=== PATIENT | female | born 1950 | race Caucasian/White ===

== ENCOUNTER 2016-11-14 10:58 | Day surgery (SDC) | payer MEDICARE, OTHER ==
[2016-11-14] MEDS ORDERED: LACTATED RINGERS 1,000 ML IV ONE ×2 (12:27→14:30)
[2016-11-14] MEDS ORDERED: fentaNYL 250 MCG/5 ML VIAL IVP ONE (14:16)
[2016-11-14] MEDS ORDERED: MIDAZOLAM 2 MG/2 ML VIAL IVP ONE (14:16)
== END 2016-11-14 10:59 | disposition home or self-care (01) ==
PROC: 0DBP8ZX Excision of Rectum, Via Natural or Artificial Opening Endoscopic, Diagnostic (ICD-10-PCS; principal; 2016-11-14 12:30)
DX: Z12.11 Encounter for screening for malignant neoplasm of colon (principal); K62.1 Rectal polyp; Z80.0 Family history of malignant neoplasm of digestive organs; K57.30 Diverticulosis of large intestine without perforation or abscess without bleeding; K64.8 Other hemorrhoids; Z86.010 Personal history of colon polyps; Z87.891 Personal history of nicotine dependence; Z80.51 Family history of malignant neoplasm of kidney; E78.5 Hyperlipidemia, unspecified
CPT/HCPCS: 45380; J3010; J7120

== ENCOUNTER 2018-01-21 15:31 | Outpatient (CLI) | payer MEDICARE ==
--- NOTE | 2018-01-31 13:55 | Mammography Report ---
Procedure Date: 01/21/2018 Accession Number: [id number] / [id number] Procedure: MGS - Screening Mammo Dig Bilat CPT Code: FULL RESULT: EXAM: Screening Mammo Dig Bilat DATE: 01/21/2018 3:53 PM CLINICAL HISTORY: ROUTINE MAMMOGRAM TECHNIQUE: Bilateral CC and MLO views were obtained. COMPARISON: The patient reports having had previous mammograms in [place], but films are not yet available for direct comparison. If they become available, an addendum will be issued. FINDINGS: The breasts demonstrate scattered fibroglandular densities bilaterally. A calcifying fibroadenoma is present in the right upper outer quadrant. Coarse and punctate, typically benign calcifications are present. No suspicious masses, clustered microcalcifications, or regions of architectural distortion are identified. IMPRESSION: Benign findings RECOMMENDATION: Routine annual screening unless otherwise clinically indicated. BIRADS CATEGORY 2: Benign findings STANDARD QUALIFYING STATEMENTS: 1. This examination was reviewed with the aid of Computer-Aided Detection (CAD). 2. A negative or benign imaging report should not delay biopsy if clinically suspicious findings are present. Consider surgical consultation if warrented. More than 5% of cancers are not identified by imaging. 3. Dense breasts may obscure an underlying neoplasm.
== END 2018-01-21 15:32 | disposition home or self-care (01) ==
LOC: DI.S 15:31
PROVIDERS: ATTEND Family Medicine
DX: Z12.31 Encounter for screening mammogram for malignant neoplasm of breast (principal)
CPT/HCPCS: 77067

== ENCOUNTER 2018-02-05 15:55 | Outpatient (CLI) | payer MEDICARE ==
--- NOTE | 2018-02-05 16:26 | XRAY Report ---
Procedure Date: 02/05/2018 Accession Number: [id number] / [id number] Procedure: XRS - Cervical Spine Complete CPT Code: FULL RESULT: EXAM: Cervical Spine Complete DATE: 02/05/2018 4:12 PM CLINICAL HISTORY: CERVICALGIA COMPARISON: None. TECHNIQUE: 5 views. FINDINGS: Alignment: Normal. No spondylolisthesis or scoliosis. Bones: The cervical vertebral bodies and posterior elements are well seen from the skull base through C7-T1. No fractures or bone lesions. Disks: Disk heights are maintained. Facets: No degenerative disease. Soft Tissues: No prevertebral soft tissue swelling. IMPRESSION: Normal cervical spine radiography. [facility]
== END 2018-02-05 15:56 | disposition home or self-care (01) ==
LOC: DI.S 15:55
PROVIDERS: ATTEND Family Medicine
DX: M54.2 Cervicalgia (principal)
CPT/HCPCS: 72050

== ENCOUNTER 2019-05-30 13:36 | Outpatient (CLI) | payer MEDICARE ==
--- NOTE | 2019-06-02 09:28 | Mammography Report ---
Reason: SCREENING MAMMO Procedure Date: 05/30/2019 Accession Number: [id number] / [id number] Procedure: MARLEEN - Screening Mammo w/Félix CPT Code: FULL RESULT: EXAM: Screening Mammo w/Félix DATE: 05/30/2019 2:06 PM CLINICAL HISTORY: Screening encounter. History of early menses. TECHNIQUE: (B) - Bilateral CC and MLO views were obtained. A left laterally exaggerated views obtained. COMPARISON: 01/21/2018. PARENCHYMAL PATTERN: (A) - The breast(s) demonstrate(s) scattered fibroglandular densities. FINDINGS: There is a partially calcified right breast nodule which is stable and consistent with a calcifying fibroadenoma. There are no suspicious masses, calcifications, or areas of distortion. IMPRESSION: Benign findings. BI-RADS category 2. RECOMMENDATION: (ANNUAL) - Recommend routine annual screening mammography. BI-RADS CATEGORY: (2) - Benign Findings. STANDARD QUALIFYING STATEMENTS: 1. This examination was not reviewed with the aid of Computer-Aided Detection (CAD). 2. A negative or benign imaging report should not preclude biopsy if clinically suspicious findings are present. 3. Dense breasts may obscure an underlying neoplasm. 4. This examination was reviewed with the aid of 3D breast imaging (tomosynthesis).
== END 2019-05-30 13:37 | disposition home or self-care (01) ==
LOC: DI 13:36
PROVIDERS: ATTEND Family Medicine
DX: Z12.31 Encounter for screening mammogram for malignant neoplasm of breast (principal)
CPT/HCPCS: 77063; 77067

== ENCOUNTER 2019-05-30 13:38 | Outpatient (CLI) | payer MEDICARE ==
--- NOTE | 2019-06-02 12:16 | DEXA Report ---
Reason: MENOPAUSAL AND POSTMENOPAUSAL DISORDERS Procedure Date: 05/30/2019 Accession Number: [id number] / [id number] Procedure: DEX - Dexa Spine and/or Hip CPT Code: FULL RESULT: EXAM: Dexa Spine and/or Hip DATE: 05/30/2019 2:20 PM CLINICAL HISTORY: MENOPAUSAL AND POSTMENOPAUSAL DISORDERS TECHNIQUE: Dual energy x-ray absorptiometry (DXA) was performed on a [employer] System. Regions measured are the AP Spine, femoral neck, and if needed forearm. COMPARISON: None. In accordance with the International Society for Clinical Densitometry (ISCD) guidelines, data from previous exams may be reanalyzed using current recommendations and techniques. This is done to allow a more accurate basis for comparison with the current study. FINDINGS: The data for the lumbar spine is as follows: BMD (g/cm/cm) T-SCORE Z-SCORE REGION L1 0.888 -2.0 -0.3 L2 1.032 -1.4 0.3 L3 1.118 -0.7 1.0 L4 1.033 -1.4 0.3 TOTAL 1.023 -1.3 0.4 NOTE: All evaluable vertebrae are used for classification The data for the hip is as follows: BMD (g/cm/cm) T-SCORE Z-SCORE REGION Neck 0.798 -1.7 0.0 TOTAL 0.792 -1.7 -0.2 NOTE: The femoral neck or total proximal femur, whichever is lowest, is used for classification. IMPRESSION: THE WHO CLASSIFICATION BASED ON THE INTERNATIONAL REFERENCE STANDARD IS OSTEOPENIA. THE FRACTURE RISK IS INCREASED. RECOMMENDATION: Patients with diagnosis of osteoporosis or osteopenia should have regular bone mineral density assessment. For those eligible for Medicare, routine testing is allowed once every 2 years. Testing frequency can be increased for patients who have rapidly progressing disease or for those who are receiving medical therapy to restore bone mass. COMMENT: World Health Organization (WHO) definitions for osteoporosis and osteopenia: NORMAL BMD: T-score at -1.0 or higher, fracture risk is low OSTEOPENIA BMD: T-score between -1.0 and -2.5, fracture risk is increased. OSTEOPOROSIS BMD: T-score at -2.5 or lower, fracture risk is high. National Osteoporosis Foundation recommends: 1. Obtain adequate dietary calcium (at least 1200 mg per day) and vitamin D (400-800 international units per day). 2. Participate, as appropriate, in regular weightbearing and muscle-strengthening exercise. 3. Avoid tobacco use and reduce alcohol and caffeine intake. 4. For more detailed information see the website at www.NOF.org.
== END 2019-05-30 13:39 | disposition home or self-care (01) ==
LOC: DI 13:38
PROVIDERS: ATTEND Family Medicine
DX: M85.89 Other specified disorders of bone density and structure, multiple sites (principal); N95.9 Unspecified menopausal and perimenopausal disorder
CPT/HCPCS: 77080

== ENCOUNTER 2020-08-16 16:33 | Outpatient (CLI) | payer MEDICARE ==
--- NOTE | 2020-08-17 11:00 | XRAY Report ---
PROCEDURE: Hand 3 View RT INDICATIONS: PAIN IN RIGHT HAND TECHNIQUE: 3 views of the hand(s) acquired. COMPARISON: None. FINDINGS: Bones: There is a fracture at the base of the fifth proximal phalanx with mild impaction, relation an d possible intra-articular involvement. No suspicious bony lesions. Mild osteopenia. Soft tissues: No suspicious soft tissue calcifications. IMPRESSION: Fifth proximal phalangeal base fracture with possible intra-articular involvement. Reviewed by: Sravanthi Perez MD on 08/17/2020 10:58 AM [facility] Approved by: Sravanthi Perez MD on 08/17/2020 10:58 AM [facility] Station ID: [id number]
== END 2020-08-16 16:34 | disposition home or self-care (01) ==
LOC: DI.S 16:33
PROVIDERS: ATTEND Nurse Practitioner Family
DX: S62.616A Displaced fracture of proximal phalanx of right little finger, initial encounter for closed fracture (principal)

== ENCOUNTER 2021-10-27 13:58 | Emergency (ER) | payer MEDICARE ==
[2021-10-27] MEDS ORDERED: SODIUM CHLORIDE 0.9% 1,000 ML IV STA (14:24)
[2021-10-27] MEDS ORDERED: ONDANSETRON 4 MG/2 ML VIAL IVP STA (14:24)
[2021-10-27 14:51] LABS: BASOPHILS % (AUTO) 0.2 %; EOSINOPHILS % (AUTO) 0.2 %; HCT - HEMATOCRIT 35.5 % (37.0-47.0); HGB - HEMOGLOBIN 12.3 g/dL (12.0-16.0); LYMPHOCYTES % (AUTO) 12.8 %; MEAN CORPUSCULAR HEMOGLOBIN 30.5 pg (27.0-31.0); MEAN CORPUSCULAR HGB CONC 34.6 g/dL (32.0-36.0); MEAN CORPUSCULAR VOLUME 88.1 fL (81.0-99.0); MEAN PLATELET VOLUME 10.5 fL (7.9-10.8); MONOCYTES % (AUTO) 10.7 %; PLT - PLATELET COUNT 218 10^3/uL (130-450); RED BLOOD COUNT 4.03 10^6/uL (4.20-5.40); RED CELL DISTRIBUTION WIDTH 13.2 % (12.0-15.0); WHITE BLOOD COUNT 13.3 x10^3/uL (4.8-10.8)
[2021-10-27 14:55] LABS: ABNORMAL LYMPHS % (MANUAL) 0 %; SLIDE REVIEW? Indicated
[2021-10-27 14:58] LABS: ALBUMIN 2.7 g/dL (3.2-5.5); ALBUMIN/GLOBULIN RATIO 0.7 (1.0-2.2); BILIRUBIN,TOTAL 0.5 mg/dL (0.2-1.0); CALCIUM 8.2 mg/dL (8.5-10.3); CREATININE 0.8 mg/dL (0.4-1.0); POTASSIUM 3.7 mmol/L (3.5-5.0); TOTAL PROTEIN 6.5 g/dL (6.7-8.2)
[2021-10-27 15:36] LABS: BAND NEUTROPHILS % (MANUAL) 1 %; BASOPHILS # (MANUAL) 0.1 10^3/uL (0-0.1); BASOPHILS % (MANUAL) 1 %; DIFFERENTIAL COMMENT MANUAL DIFFERENTIAL; LYMPHOCYTES # (MANUAL) 1.6 10^3/uL (1.5-3.5); LYMPHOCYTES % (MANUAL) 12 %; NEUTROPHILS # (MANUAL) 9.6 10^3/uL (1.5-6.6); PLATELET ESTIMATE, MANUAL NORMAL (130-450,000) (NORMAL); PLATELET MORPHOLOGY NORMAL APPEARANCE (NORMAL); RBC MORPHOLOGY (MULTIPLE) NORMAL APPEARANCE (NORMAL); WBC MORPHOLOGY (MULTIPLE) 1+ TOXIC GRANULATION (NORMAL)
--- NOTE | 2021-10-27 15:59 | ED Physician Documentation ---
History of Present Illness - Stated complaint Stated Complaint: SOA/DIZZY/BACK PX - Chief complaint Chief Complaint: General - History obtained from History obtained from: Patient - Additonal information Additional information: The patient comes to the emergency department with chief complaint of fatigue and diarrhea. She states that symptoms have been going on for about the last 6 days. She states she started does feel very tired and then developed watery diarrhea. This lasted until about a couple days ago when she took Imodium. She has not had a bowel movement since. She states her appetite was low but she was able to keep bananas and rice down. She is also been drinking fluids. The patient states she has had headache and had some chills last night. No measured fevers. No chest pain or abdominal pain. No dysuria. No edema in her lower extremities. No cough, rhinorrhea, or sore throat. She is vaccinated for Covid and has had 2 - Covid tests since onset of symptoms. No other complaints at this time. She states she does not see people very often and has had no sick contacts that she knows of. She is otherwise quite healthy. Review of Systems Ten Systems: 10 systems reviewed and negative Constitutional: reports: Fatigue Eyes: reports: Reviewed and negative Ears: reports: Reviewed and negative Nose: reports: Reviewed and negative. denies: Rhinorrhea / runny nose, Congestion Throat: reports: Reviewed and negative Cardiac: reports: Reviewed and negative. denies: Chest pain / pressure, Pedal edema Respiratory: reports: Dyspnea. denies: Cough GI: reports: Diarrhea. denies: Abdominal Pain, Nausea : reports: Reviewed and negative. 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 HEENT: Tonsil/Adenoidectomy - Present Medications Home Medications: Ambulatory Orders Medication Instructions Recorded Confirmed Atorvastatin [Lipitor] 10 mg PO DAILY 11/14/16 11/14/16 - Allergies Allergies/Adverse Reactions: Allergies Allergy/AdvReac Type Severity Reaction Status Date / Time erythromycin base Allergy Intermediate Hives Verified 11/14/16 11:53 simvastatin Allergy Unknown Verified 10/27/21 14:07 PD ED PE NORMAL - Vitals Vital signs reviewed: Yes - General General: Alert and oriented X 3, No acute distress, Well developed/nourished - HEENT HEENT: Atraumatic, PERRL, EOMI, Moist mucous membranes - Neck Neck: Supple, no meningeal sign - Cardiac Cardiac: RRR, No murmur, Strong equal pulses - Respiratory Respiratory: No respiratory distress, Clear bilaterally - Abdomen Abdomen: Soft, Non tender, Non distended - Derm Derm: Normal color, Warm and dry, No rash - Extremities Extremities: No deformity, No edema, No calf tenderness / cord - Neuro Neuro: Alert and oriented X 3, field investigator 2-12 intact, Normal speech - Psych Psych: Normal mood, Normal affect Results - Vitals Vitals: Vital Signs - 24 hr 10/27/21 10/27/21 10/27/21 14:03 14:57 16:10 Temperature 36.5 C Heart Rate 97 83 73 Respiratory 18 12 13 Rate Blood Pressure 120/50 L 109/37 L 94/53 L O2 Saturation 100 98 100 Oxygen O2 Source Room air - EKG (time done) 1402 Rate: Rate (enter#) (99) Rhythm: NSR [place]: Normal Intervals: Normal OR QRS: Normal Ischemia: Normal ST segments Compare to prior EKG: Old EKG unavailable Computer interpretation: Agree with computer - Labs Labs: Laboratory Tests 10/27/21 10/27/21 10/27/21 14:40 14:40 15:34 WBC 13.3 H RBC 4.03 L Hgb 12.3 Hct 35.5 L MCV 88.1 MCH 30.5 MCHC 34.6 RDW 13.2 Plt Count 218 MPV 10.5 Neut # (Auto) Not Reportable Lymph # (Auto) Not Reportable [place] # (Auto) Not Reportable Eos # (Auto) Not Reportable Baso # (Auto) Not Reportable Absolute Nucleated RBC Not Reportable Total Counted 100 Band Neuts % (Manual) 1 Abnorm Lymph % (Manual) 0 Nucleated RBC % Not Reportable Neutrophils # (Manual) 9.6 H Lymphocytes # (Manual) 1.6 Monocytes # (Manual) 2.0 H Eosinophils # (Manual) 0.0 Basophils # (Manual) 0.1 Differential Comment MANUAL DIFFERENTIAL Manual Slide Review Indicated WBC Morphology 1+ TOXIC GRANULATION Platelet Estimate NORMAL (130-450,000) Platelet Morphology NORMAL APPEARANCE RBC Morph Micro Appear NORMAL APPEARANCE Sodium 130 L Potassium 3.7 Chloride 95 L Carbon Dioxide 25 Anion Gap 10.0 BUN 22 H Creatinine 0.8 Estimated GFR (MDRD) 70 L Glucose 110 H Calcium 8.2 L Total Bilirubin 0.5 AST 39 ALT 163 H Alkaline Phosphatase 176 H Total Protein 6.5 L Albumin 2.7 L Globulin 3.8 Albumin/Globulin Ratio 0.7 L Lipase 30 Urine Color YELLOW Urine Clarity CLEAR Urine pH 6.0 Ur Specific [place] <=1.005 Urine Protein NEGATIVE Urine Glucose (UA) NEGATIVE Urine Ketones NEGATIVE Urine Occult Blood TRACE-INTA Urine Nitrite NEGATIVE Urine Bilirubin NEGATIVE Urine Urobilinogen 0.2 (NORMAL) Ur Leukocyte Esterase NEGATIVE Ur Microscopic Review NOT INDICATED Urine Culture Comments NOT INDICATED Nasal Adenovirus (PCR) Nasal B. parapertussis DNA (PCR) Nasal Coronavir 229E PCR Nasal Coronavir HKU1 PCR Nasal Coronavir NL63 PCR Nasal Coronavir OC43 PCR Nasal Enterovir/Rhinovir PCR Nasal Influenza B PCR Nasal Influenza A PCR Nasal Parainfluen 1 PCR Nasal Parainfluen 2 PCR Nasal Parainfluen 3 PCR Nasal Parainfluen 4 PCR Nasal RSV (PCR) Nasal B.pertussis DNA PCR Nasal C.pneumoniae (PCR) Win Human Metapneumo PCR Nasal M.pneumoniae (PCR) Nasal SARS-CoV-2 (PCR) 10/27/21 16:11 WBC RBC Hgb Hct MCV MCH MCHC RDW Plt Count MPV Neut # (Auto) Lymph # (Auto) [place] # (Auto) Eos # (Auto) Baso # (Auto) Absolute Nucleated RBC Total Counted Band Neuts % (Manual) Abnorm Lymph % (Manual) Nucleated RBC % Neutrophils # (Manual) Lymphocytes # (Manual) Monocytes # (Manual) Eosinophils # (Manual) Basophils # (Manual) Differential Comment Manual Slide Review WBC Morphology Platelet Estimate Platelet Morphology RBC Morph Micro Appear Sodium Potassium Chloride Carbon Dioxide Anion Gap BUN Creatinine Estimated GFR (MDRD) Glucose Calcium Total Bilirubin AST ALT Alkaline Phosphatase Total Protein Albumin Globulin Albumin/Globulin Ratio Lipase Urine Color Urine Clarity Urine pH Ur Specific [place] Urine Protein Urine Glucose (UA) Urine Ketones Urine Occult Blood Urine Nitrite Urine Bilirubin Urine Urobilinogen Ur Leukocyte Esterase Ur Microscopic Review Urine Culture Comments Nasal Adenovirus (PCR) NOT DETECTED Nasal B. parapertussis DNA (PCR) NOT DETECTED Nasal Coronavir 229E PCR NOT DETECTED Nasal Coronavir HKU1 PCR NOT DETECTED Nasal Coronavir NL63 PCR NOT DETECTED Nasal Coronavir OC43 PCR NOT DETECTED Nasal Enterovir/Rhinovir PCR NOT DETECTED Nasal Influenza B PCR NOT DETECTED Nasal Influenza A PCR NOT DETECTED Nasal Parainfluen 1 PCR NOT DETECTED Nasal Parainfluen 2 PCR NOT DETECTED Nasal Parainfluen 3 PCR NOT DETECTED Nasal Parainfluen 4 PCR NOT DETECTED Nasal RSV (PCR) NOT DETECTED Nasal B.pertussis DNA PCR NOT DETECTED Nasal C.pneumoniae (PCR) NOT DETECTED Win Human Metapneumo PCR NOT DETECTED Nasal M.pneumoniae (PCR) NOT DETECTED Nasal SARS-CoV-2 (PCR) NOT DETECTED - Rads (name of study) Right upper quadrant ultrasound Radiology: Final report received, EMP read indepedently, See rad report (Heterogenous mass in superior aspect of right hepatic lobe approximately 4 x 5 x 7 cm. Remaining liver normal. No gallbladder pathology.) CT abdomen pelvis with IV contrast Radiology: Final report received, EMP read indepedently, See rad report (Heterogenous multicystic appearing lesion in right lobe of liver malignant and benign etiologies in the differential diagnosis. Only [address] chest with IV contrast Radiology: Final report received, EMP read indepedently, See rad report (Upper lobe as above; no other chest lesions noted) PD MEDICAL DECISION MAKING - ED course Complexity details: reviewed results, re-evaluated patient, considered differential, d/w patient ED course: The patient was worked up with labs, which showed elevated LFTs. Urinalysis and respiratory PCR were also ordered, as was a sonogram of the right upper quadrant, due to the elevated LFTs. The patient was treated with a liter of 0.9 normal saline. Ultrasound showed a large liver mass, which prompted a CT scan of the chest abdomen and pelvis. No further masses were found, and radiologist commented that the masses appearance could indicate either a benign or malignant process. I discussed the findings with the patient. Her labs otherwise had showed a mildly low sodium which had been addressed with the liter of normal saline. The patient has a primary care physician, Dr. Gracia, who is very responsive if patient needs to be seen, and patient states she will call her office first thing tomorrow to schedule follow-up to discuss a biopsy of the lesion. As far as her sense of general malaise and fatigue, it is possible that this is due to what ever the process is that is causing the mass in her liver, but it is also very possible that she has a viral syndrome. Her viral panel is pending at this time. We have discussed the need for hydration and nutrition at home. The patient has had something to eat and drink here and is feeling a little better. She is ambulated to the bathroom without difficulty. We have discussed the usual indications for return. Departure - Departure Disposition: 01 Home, Self Care Clinical Impression: Liver mass, Viral syndrome Condition: Stable Instructions: ED Viral Syndrome Comments: Your labs showed a mildly decreased sodium, which has been treated with saline containing IV fluids today. Your labs also showed elevation of some of your liver enzymes, which prompted an ultrasound, then a CT scan. You are found to have a fairly large size mass on the top of your liver, which is most likely the reason for the sense of mass that you have had along your ribs and with tamika thing. At this point in time, the radiologist has commented that it is not clear whether this is malignant/cancerous or benign/noncancerous, as the appearance could be consistent with a number of both types of masses. At this point in time, the most important aspect of follow-up is to speak with your doctor about getting urgently set up for a biopsy. Please call your doctors office first thing in the morning to set up the next available appointment to follow-up your ER visit. Please be sure to tell them that you are in the ER not feeling well and that you were diagnosed with a tumor on your liver. Your tests otherwise look good. Your viral panel is still pending and Will be back within the next couple of hours. We will call you for any significant positive results, but you also may follow the results yourself if you wish via our website at [email or web address]. From there, please click on the "my [employer] tab and sign up for the patient portal. Please continue to drink plenty of fluids. You may eat food as you feel able.
[2021-10-27 16:06] LABS: BILIRUBIN,URINE NEGATIVE (NEGATIVE); GLUCOSE, URINE (UA) NEGATIVE (NEGATIVE); KETONES,URINE (UA) NEGATIVE (NEGATIVE); LEUKOCYTE ESTERASE, URINE NEGATIVE (NEGATIVE); NITRITE,URINE NEGATIVE (NEGATIVE); OCCULT BLOOD,URINE TRACE-INTA (NEGATIVE); PROTEIN,URINE NEGATIVE (NEGATIVE); UROBILINOGEN,URINE 0.2 (NORMAL) E.U./dL (NORMAL)
[2021-10-27 16:07] LABS: CLARITY,URINE CLEAR (CLEAR)
[2021-10-27] MEDS ORDERED: IOVERSOL 320 100 ML VIAL IVP ONE ×2 (16:27→16:33)
--- NOTE | 2021-10-27 16:37 | Ultrasound Report ---
PROCEDURE: Abdomen Limited INDICATIONS: elevated LFTs, feeling unwell TECHNIQUE: Real-time focused scanning was performed of the abdomen, with image documentation. COMPARISON: None. FINDINGS: Heterogeneous mass in the superior aspect of the right hepatic lobe measuring approximatel y 4.3 x 5.5 x 7.2 cm. Remaining liver is normal. No intrahepatic or extra hepatic biliary ductal dila tation. Pancreas is normal. Right kidney unremarkable. IMPRESSION: Heterogeneous right hepatic lobe mass with both malignant and benign differential considerations. [facility] protocol CT or MRI recommended. Reviewed by: Zack Cassidy MD on 10/27/2021 4:36 PM PST Approved by: Zack Cassidy MD on 10/27/2021 4:36 PM PST Station ID: [id number]
--- NOTE | 2021-10-27 16:53 | CT Report ---
PROCEDURE: CHEST W INDICATIONS: Liver mass, dyspnea CONTRAST: IV CONTRAST: Optiray 320 ml: 100 PO CONTRAST: *NO PO CONTRAST TECHNIQUE: After the administration of intravenous contrast, 1 mm axial images were acquired from the pulmonary apices through the posterior costophrenic angles. Axial 5 mm soft tissue kernel reconstructions were performed as well as 8 mm axial MIP and coronal and sagittal 5 mm reformations. For radiation dose reduction, the following was used: automated exposure control, adjustment of mA and/or kV according to patient size. COMPARISON: None. FINDINGS: Image quality: Excellent. Lungs and pleura: No suspicious lung nodule or mass. No acute airspace opacity otherwise. No signific ant pleural abnormality. Mediastinum: Heart size is normal. No pericardial effusion. No mediastinal or hilar adenopathy by size criteria. Thoracic aorta and central pulmonary arteries are normal in size. Esophagus is janine l in caliber. No hiatal hernia. Bones and chest wall: No suspicious bony lesions. No vertebral body compression fractures. No axil sabine or supraclavicular adenopathy by size criteria. The thyroid is normal in size and there are no incidental findings.. IMPRESSION: No acute or otherwise significant abnormality in the chest. There is a right hepatic lobe mass; please see separately dictated report for CT of the abdomen and p jeremy. Reviewed by: Zack Cassidy MD on 10/27/2021 4:51 PM PST Approved by: Zack Cassidy MD on 10/27/2021 4:51 PM PST Station ID: [id number]
--- NOTE | 2021-10-27 17:02 | CT Report ---
PROCEDURE: Abdomen/Pelvis W INDICATIONS: liver mass, fatigue CONTRAST: IV CONTRAST: Optiray 320 ml: 100 PO CONTRAST: *NO PO CONTRAST TECHNIQUE: After the administration of intravenous contrast, 5 mm thick sections acquired from the diaphragms to the symphysis. 5 mm thick coronal and sagittal reformats were acquired. For radiation dose reducti on, the following was used: automated exposure control, adjustment of mA and/or kV according to gagandeep ent size. COMPARISON: Abdominal ultrasound earlier today. FINDINGS: Image quality: Excellent. ABDOMEN: Lung bases: Please see separately dictated same day CT chest. No pleural effusion. Solid organs: Heterogeneous multicystic lesion in the right lobe of liver subcapsular measuring 5.5 x 4.2 cm, (11/09). No internal calcifications are seen. There is surrounding hyperemia. Liver is promin ent in size. Gallbladder is prominent. Biliary system is non dilated. Pancreas enhances normally. No splenomegal y. No adrenal nodules demonstrated. Kidneys demonstrate normal size and enhancement, without hydrone phrosis. No solid renal mass. Peritoneum and bowel: Bowel loops demonstrate normal wall thickness and caliber. Diverticulosis. No free fluid or air. Nodes and vessels: No retroperitoneal or mesenteric adenopathy by size criteria. Aorta and inferior vena cava are normal in size. Moderate plaque. Miscellaneous: Tiny umbilical hernia. PELVIS: Genitourinary: Bladder wall thickness is normal. No stones. Anteverted uterus. No free fluid. Miscellaneous: No inguinal hernias or adenopathy. Bones: No suspicious bony lesions. No vertebral body compression fractures. IMPRESSION: 1. Heterogeneous multicystic appearing lesion in the right lobe of the liver measuring 5.5 cm. Malign ant and benign etiologies are in the differential diagnosis. This does not have the typical appearanc e of a hepatocellular carcinoma or hemangioma. Only one lesion is identified but this does not exclud e metastatic disease. Mucinous neoplasm could have this appearance. Abscess or hamartoma would also b e considered in the differential diagnosis. Recommend ultrasound-guided biopsy for tissue diagnosis. MRI liver with multiphase contrast could als o be helpful. 2. No adenopathy demonstrated. 3. Prominent liver size. Reviewed by: Tu Almaraz MD on 10/27/2021 5:01 PM PST Approved by: Tu Almaraz MD on 10/27/2021 5:01 PM PST Station ID: [id number]
[2021-10-27 17:19] LABS: B. PARAPERTUSSIS- RESP PCR PAN NOT DETECTED; B. PERTUSSIS- RESP PCR PANEL NOT DETECTED; C. PNEUMONIAE- RESP PCR PANEL NOT DETECTED; CORONAVIRUS 229E-RESP PCR NOT DETECTED; CORONAVIRUS HKU1-RESP PCR NOT DETECTED; CORONAVIRUS NL63-RESP PCR NOT DETECTED; CORONAVIRUS OC43-RESP PCR NOT DETECTED; HUMAN METAPNEUMOVIRUS NOT DETECTED; INFLUENZA A- RESP PCR PANEL NOT DETECTED; INFLUENZA B - RESP PCR PANEL NOT DETECTED; M. PNEUMONIAE- RESP PCR PANEL NOT DETECTED; PARAINFLUENZA VIRUS 1 NOT DETECTED; PARAINFLUENZA VIRUS 2 NOT DETECTED; PARAINFLUENZA VIRUS 3 NOT DETECTED; PARAINFLUENZA VIRUS 4 NOT DETECTED; RHINOVIRUS/ENTEROVIRUS NOT DETECTED; RSV- RESP PCR PANEL NOT DETECTED; SARS-CoV-2 -RESP PCR PANEL NOT DETECTED
[2021-10-27 18:14] VITALS: BP 108/54
== END 2021-10-27 18:10 | disposition home or self-care (01) ==
LOC: ED 13:58
DX: B34.9 Viral infection, unspecified (principal); R16.0 Hepatomegaly, not elsewhere classified; R79.89 Other specified abnormal findings of blood chemistry
CPT/HCPCS: 36415; 71260; 74177; 76705; 80053; 81003; 83690; 85025; 87631; 93005; 96361; 96374; 99284; Q9967; 0202U; 81001; 87086

== ENCOUNTER 2021-10-30 11:47 | Emergency (ER) | payer MEDICARE ==
[2021-10-30 12:25] LABS: BASOPHILS # (AUTO) 0.1 10^3/uL (0.0-0.1); BASOPHILS % (AUTO) 0.5 %; EOSINOPHILS % (AUTO) 0.2 %; HCT - HEMATOCRIT 33.7 % (37.0-47.0); HGB - HEMOGLOBIN 11.5 g/dL (12.0-16.0); LYMPHOCYTES # (AUTO) 2.5 10^3/uL (1.5-3.5); LYMPHOCYTES % (AUTO) 13.5 %; MEAN CORPUSCULAR HEMOGLOBIN 30.7 pg (27.0-31.0); MEAN CORPUSCULAR HGB CONC 34.1 g/dL (32.0-36.0); MEAN CORPUSCULAR VOLUME 89.9 fL (81.0-99.0); MEAN PLATELET VOLUME 9.9 fL (7.9-10.8); MONOCYTES # (AUTO) 1.1 10^3/uL (0.0-1.0); NEUTROPHILS # (AUTO) 14.7 10^3/uL (1.5-6.6); NEUTROPHILS % (AUTO) 78.9 %; PLT - PLATELET COUNT 378 10^3/uL (130-450); RED BLOOD COUNT 3.75 10^6/uL (4.20-5.40); RED CELL DISTRIBUTION WIDTH 14.1 % (12.0-15.0); WHITE BLOOD COUNT 18.6 x10^3/uL (4.8-10.8)
[2021-10-30 12:31] LABS: INR 1.3 (0.8-1.2); PT - PROTHROMBIN TIME 14.9 secs (9.9-12.6)
[2021-10-30 12:38] LABS: PARTIAL THROMBOPLASTIN TIME 26.4 secs (24.9-33.3)
[2021-10-30 12:39] LABS: ALBUMIN 2.6 g/dL (3.2-5.5); ALBUMIN/GLOBULIN RATIO 0.6 (1.0-2.2); BILIRUBIN,TOTAL 0.6 mg/dL (0.2-1.0); CALCIUM 8.2 mg/dL (8.5-10.3); CREATININE 0.6 mg/dL (0.4-1.0); POTASSIUM 3.1 mmol/L (3.5-5.0); TOTAL PROTEIN 6.8 g/dL (6.7-8.2)
[2021-10-30 14:17] LABS: BILIRUBIN,URINE NEGATIVE (NEGATIVE); GLUCOSE, URINE (UA) NEGATIVE (NEGATIVE); KETONES,URINE (UA) NEGATIVE (NEGATIVE); LEUKOCYTE ESTERASE, URINE NEGATIVE (NEGATIVE); NITRITE,URINE NEGATIVE (NEGATIVE); OCCULT BLOOD,URINE TRACE-INTA (NEGATIVE); PROTEIN,URINE NEGATIVE (NEGATIVE); UROBILINOGEN,URINE 0.2 (NORMAL) E.U./dL (NORMAL)
[2021-10-30 14:21] LABS: CLARITY,URINE CLEAR (CLEAR)
[2021-10-30] MEDS ORDERED: SODIUM CHLORIDE 0.9% 2,000 ML IV STA (14:21)
--- NOTE | 2021-10-30 14:25 | ED Physician Documentation ---
History of Present Illness - Stated complaint Stated Complaint: FALL/WEAKNESS/DIARRHEA - Chief complaint Chief Complaint: General - History obtained from History obtained from: Patient - History of Present Illness Timing: Last night Pain level max: 0 Pain level now: 0 - Additonal information Additional information: Patient is a 71-year-old female who presents to the emergency department stating she is currently being worked up for a mass in her liver. Has had frequent diarrhea as well. She states last night she is unsure what happened, but thinks she either passed out or fell. She states she woke up on the floor. Denies any injury. No headaches. Patient has an appointment in 2 days for further work-up of the liver mass. She denies any fevers or chills. Feels lightheaded with standing. No chest pain. No shortness of breath. Worse with standing, better with lying down. She feels like her blood pressure is low. She denies any medications at home. Review of Systems Constitutional: denies: Fever, Chills Throat: denies: Sore throat Cardiac: denies: Palpitations Respiratory: denies: Cough, Wheezing Skin: denies: Rash Musculoskeletal: denies: Neck pain, Back pain Neurologic: reports: Generalized weakness. 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 HEENT: Tonsil/Adenoidectomy - Present Medications Home Medications: Ambulatory Orders Medication Instructions Recorded Confirmed Atorvastatin [Lipitor] 10 mg PO DAILY 11/14/16 11/14/16 - Allergies Allergies/Adverse Reactions: Allergies Allergy/AdvReac Type Severity Reaction Status Date / Time erythromycin base Allergy Intermediate Hives Verified 10/30/21 12:01 simvastatin Allergy Unknown Verified 10/30/21 12:01 PD ED PE NORMAL - Vitals Vital signs reviewed: Yes - General General: Alert and oriented X 3, No acute distress, Well developed/nourished - HEENT HEENT: PERRL, Moist mucous membranes - Neck Neck: Supple, no meningeal sign - Cardiac Cardiac: RRR, Strong equal pulses - Respiratory Respiratory: No respiratory distress, Clear bilaterally - Abdomen Abdomen: Soft, Non tender, Non distended - Derm Derm: Warm and dry - Extremities Extremities: No edema, No calf tenderness / cord - Neuro Neuro: Alert and oriented X 3 - Psych Psych: Normal mood, Normal affect Results - Vitals Vitals: Vital Signs - 24 hr 10/30/21 10/30/21 10/30/21 11:58 14:57 16:00 Temperature 35.9 C L 36.5 C Heart Rate 108 H 83 56 L Respiratory 16 12 16 Rate Blood Pressure 105/50 L 125/60 121/63 O2 Saturation 96 100 96 Oxygen O2 Source Room air - EKG (time done) 1521 Rate: Rate (enter#) (78) Rhythm: NSR [place]: Normal Intervals: Normal [place] QRS: Normal Ischemia: Non specific changes - Labs Labs: Laboratory Tests 10/30/21 10/30/21 10/30/21 12:20 12:20 12:20 WBC 18.6 H RBC 3.75 L Hgb 11.5 L Hct 33.7 L MCV 89.9 MCH 30.7 MCHC 34.1 RDW 14.1 Plt Count 378 MPV 9.9 Neut # (Auto) 14.7 H Lymph # (Auto) 2.5 Chase # (Auto) 1.1 H Eos # (Auto) 0.0 Baso # (Auto) 0.1 Absolute Nucleated RBC 0.00 Nucleated RBC % 0.0 PT 14.9 H INR 1.3 H APTT 26.4 Sodium 134 L Potassium 3.1 L Chloride 96 L Carbon Dioxide 26 Anion Gap 12.0 BUN 15 Creatinine 0.6 Estimated GFR (MDRD) 98 Glucose 106 H Calcium 8.2 L Total Bilirubin 0.6 AST 67 H ALT 89 H Alkaline Phosphatase 215 H Total Protein 6.8 Albumin 2.6 L Globulin 4.2 Albumin/Globulin Ratio 0.6 L Lipase 35 Urine Color Urine Clarity Urine pH Ur Specific [place] Urine Protein Urine Glucose (UA) Urine Ketones Urine Occult Blood Urine Nitrite Urine Bilirubin Urine Urobilinogen Ur Leukocyte Esterase Ur Microscopic Review Urine Culture Comments 10/30/21 14:10 WBC RBC Hgb Hct MCV MCH MCHC RDW Plt Count MPV Neut # (Auto) Lymph # (Auto) Chase # (Auto) Eos # (Auto) Baso # (Auto) Absolute Nucleated RBC Nucleated RBC % PT INR APTT Sodium Potassium Chloride Carbon Dioxide Anion Gap BUN Creatinine Estimated GFR (MDRD) Glucose Calcium Total Bilirubin AST ALT Alkaline Phosphatase Total Protein Albumin Globulin Albumin/Globulin Ratio Lipase Urine Color YELLOW Urine Clarity CLEAR Urine pH 6.0 Ur Specific [place] <=1.005 Urine Protein NEGATIVE Urine Glucose (UA) NEGATIVE Urine Ketones NEGATIVE Urine Occult Blood TRACE-INTA Urine Nitrite NEGATIVE Urine Bilirubin NEGATIVE Urine Urobilinogen 0.2 (NORMAL) Ur Leukocyte Esterase NEGATIVE Ur Microscopic Review NOT INDICATED Urine Culture Comments NOT INDICATED - Rads (name of study) HEAD CT Radiology: Final report received, EMP read contemporaneously, See rad report (No acute intracranial abnormality) PD MEDICAL DECISION MAKING - ED course Complexity details: reviewed results, re-evaluated patient, considered differential, d/w patient ED course: 71-year-old female presents with what appears to be height dehydration, causing hypotension and lightheadedness. Feels much better after IV fluids. She has been worked up for a liver mass and has an appointment in 2 days for this. She does have an elevated white blood cell count, but states that she has not had any fevers. She states her white blood cell count has been elevated in the past. No evidence of sepsis. No indication for antibiotics. We will have her follow-up closely with her PCP for further care. Patient counseled regarding signs and symptoms for which I believe and urgent re-evaluation would be necessary. Patient with good understanding of and agreement to plan and is comfortable going home at this time This document was made in part using voice recognition software. While efforts are made to proofread this document, sound alike and grammatical errors may occur. Departure - Departure Disposition: Home, Self Care Clinical Impression: Liver mass, Dehydration Leukocytosis Qualifiers: Leukocytosis type: unspecified Qualified Code(s): D72.829 - Elevated white blood cell count, unspecified Diarrhea Qualifiers: Diarrhea type: unspecified type Qualified Code(s): R19.7 - Diarrhea, unspecified Condition: Good Instructions: ED Dehydration, ED Diarrhea Viral Follow-Up: Your,doctor in 1 week [Other] Comments: Please follow-up with your doctor for further care. Return if you worsen. You should have your white blood cell count rechecked in 2 to 3 days with your doctor. Drink plenty of water at home. Follow-up as scheduled on Sunday for further evaluation of your liver mass. Return if you worsen Discharge Date/Time: 10/30/21 16:48
--- NOTE | 2021-10-30 15:05 | CT Report ---
PROCEDURE: HEAD WO INDICATIONS: fall, head injury TECHNIQUE: Noncontrast 4.5 mm thick angled axial sections acquired from the foramen magnum to the vertex. For r adiation dose reduction, the following was used: automated exposure control, adjustment of mA and/or kV according to patient size. COMPARISON: None. FINDINGS: Image quality: Excellent. CSF spaces: Basal cisterns are patent. No extra-axial fluid collections. Ventricles are normal in size and shape. Brain: No midline shift. No intracranial masses or hemorrhage. Rodriguez-white matter interface is with in normal limits. Skull and face: Calvarium and visualized facial bones are intact, without suspicious lesions. Sinuses: Visualized sinuses and mastoids are clear. IMPRESSION: No acute intracranial abnormality. Reviewed by: Tu Almaraz MD on 10/30/2021 2:03 PM MICHAEL Approved by: Tu Almaraz MD on 10/30/2021 2:03 PM MICHAEL Station ID: [id number]
[2021-10-30 16:16] VITALS: BP 121/63
== END 2021-10-30 16:48 | disposition home or self-care (01) ==
LOC: ED 11:47
DX: E86.0 Dehydration (principal); D72.829 Elevated white blood cell count, unspecified; R19.7 Diarrhea, unspecified; R16.0 Hepatomegaly, not elsewhere classified
CPT/HCPCS: 36415; 80053; 81001; 81003; 83690; 85025; 85610; 85730; 87086; 93005; 96360; 96361; 99284

== ENCOUNTER 2021-10-31 18:04 | Outpatient (CLI) | payer MEDICARE | END 2021-10-31 18:05 | disposition critical access hospital (66) | LOC: EMS 18:04 | DX: R53.1 Weakness (principal); R10.11 Right upper quadrant pain; R53.83 Other fatigue; R06.89 Other abnormalities of breathing; R68.83 Chills (without fever) | CPT/HCPCS: A0425; A0427 ==

== ENCOUNTER 2021-10-31 18:35 | Emergency (ER) | payer MEDICARE ==
[2021-10-31] MEDS ORDERED: HYDROmorphone 1 MG/ML CARPUJECT IVP STA ×2 (19:15→21:40)
[2021-10-31 19:38] LABS: BASOPHILS % (AUTO) 0.5 %; HCT - HEMATOCRIT 30.4 % (37.0-47.0); HGB - HEMOGLOBIN 10.5 g/dL (12.0-16.0); LYMPHOCYTES % (AUTO) 2.5 %; MEAN CORPUSCULAR HEMOGLOBIN 31.3 pg (27.0-31.0); MEAN CORPUSCULAR HGB CONC 34.5 g/dL (32.0-36.0); MEAN CORPUSCULAR VOLUME 90.5 fL (81.0-99.0); MEAN PLATELET VOLUME 9.9 fL (7.9-10.8); MONOCYTES % (AUTO) 0.7 %; NEUTROPHILS % (AUTO) 95.4 %; PLT - PLATELET COUNT 391 10^3/uL (130-450); RED BLOOD COUNT 3.36 10^6/uL (4.20-5.40); RED CELL DISTRIBUTION WIDTH 14.4 % (12.0-15.0); WHITE BLOOD COUNT 20.6 x10^3/uL (4.8-10.8)
[2021-10-31 19:42] LABS: ABNORMAL LYMPHS % (MANUAL) 0 %
[2021-10-31 19:52] LABS: ALBUMIN 2.5 g/dL (3.2-5.5); ALBUMIN/GLOBULIN RATIO 0.7 (1.0-2.2); BILIRUBIN,TOTAL 0.9 mg/dL (0.2-1.0); CALCIUM 7.9 mg/dL (8.5-10.3); CREATININE 0.7 mg/dL (0.4-1.0); POTASSIUM 3.2 mmol/L (3.5-5.0); TOTAL PROTEIN 6.1 g/dL (6.7-8.2)
[2021-10-31 19:55] LABS: BILIRUBIN,URINE NEGATIVE (NEGATIVE); GLUCOSE, URINE (UA) NEGATIVE (NEGATIVE); KETONES,URINE (UA) NEGATIVE (NEGATIVE); LEUKOCYTE ESTERASE, URINE NEGATIVE (NEGATIVE); NITRITE,URINE NEGATIVE (NEGATIVE); OCCULT BLOOD,URINE NEGATIVE (NEGATIVE); PROTEIN,URINE NEGATIVE (NEGATIVE); UROBILINOGEN,URINE 0.2 (NORMAL) E.U./dL (NORMAL)
[2021-10-31 19:56] LABS: CLARITY,URINE CLEAR (CLEAR)
[2021-10-31 19:59] LABS: BAND NEUTROPHILS % (MANUAL) 3 %; LYMPHOCYTES # (MANUAL) 0.4 10^3/uL (1.5-3.5); LYMPHOCYTES % (MANUAL) 2 %; MONOCYTES # (MANUAL) 0.2 10^3/uL (0.0-1.0)
[2021-10-31 20:00] LABS: DIFFERENTIAL COMMENT MANUAL DIFFERENTIAL; PLATELET ESTIMATE, MANUAL NORMAL (130-450,000) (NORMAL); PLATELET MORPHOLOGY NORMAL APPEARANCE (NORMAL); RBC MORPHOLOGY (MULTIPLE) NORMAL APPEARANCE (NORMAL); WBC MORPHOLOGY (MULTIPLE) 2+ TOXIC GRANULATION (NORMAL)
[2021-10-31] MEDS ORDERED: IOVERSOL 320 100 ML VIAL IVP ONE ×2 (20:39→21:05)
--- NOTE | 2021-10-31 20:49 | ED Physician Documentation ---
History of Present Illness - Stated complaint Stated Complaint: WEAKNESS, FEELING SICK - Chief complaint Chief Complaint: Fever - History obtained from History obtained from: Patient - History of Present Illness Timing: Today Pain level max: 8 Pain level now: 7 - Additonal information Additional information: Patient is a 71-year-old female who was seen here recently and diagnosed with a liver mass. Has an appointment with hepatology in 2 days at a [facility] for further care. She states that today she has been feeling generally unwell, for the first time had right upper quadrant abdominal pain. Nothing makes it better or worse. Developed a fever today as well. Feels generally weak. Review of Systems Ten Systems: 10 systems reviewed and negative Constitutional: reports: Fever, Chills Ears: denies: Ear pain Nose: denies: Rhinorrhea / runny nose, Congestion Throat: denies: Sore throat Respiratory: denies: Dyspnea, Cough GI: denies: Abdominal Pain, Nausea, Vomiting, Diarrhea : denies: Dysuria Skin: denies: Rash Musculoskeletal: denies: Neck pain, Back pain Neurologic: denies: Headache PD PAST MEDICAL HISTORY - Past Medical History Cardiovascular: High cholesterol Respiratory: None Endocrine/Autoimmune: None GI: None : None HEENT: None Psych: None Musculoskeletal: Osteoarthritis Derm: None - Past Surgical History General: Appendectomy 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 HEENT: Tonsil/Adenoidectomy - Present Medications Home Medications: Ambulatory Orders Medication Instructions Recorded Confirmed Atorvastatin [Lipitor] 10 mg PO DAILY 11/14/16 11/14/16 - Allergies Allergies/Adverse Reactions: Allergies Allergy/AdvReac Type Severity Reaction Status Date / Time erythromycin base Allergy Intermediate Hives Verified 10/30/21 12:01 simvastatin Allergy Unknown Verified 10/30/21 12:01 - Social History Does the pt smoke?: No Smoking Status: Never smoker Does the pt drink ETOH?: No Does the pt have substance abuse?: No PD ED PE NORMAL - Vitals Vital signs reviewed: Yes - General General: Alert and oriented X 3, No acute distress - HEENT HEENT: Moist mucous membranes - Neck Neck: Supple, no meningeal sign - Cardiac Cardiac: RRR - Respiratory Respiratory: No respiratory distress, Clear bilaterally - Abdomen Abdomen: Soft, Non distended, Other (mild TTP RUQ, no peritoneal signs) - Derm Derm: Warm and dry - Extremities Extremities: No edema - Neuro Neuro: Alert and oriented X 3 Results - Vitals Vitals: Vital Signs - 24 hr 10/31/21 19:02 Temperature 101.2 C H Heart Rate 112 H Respiratory 18 Rate Blood Pressure 120/64 O2 Saturation 98 Oxygen O2 Source Room air - Labs Labs: Laboratory Tests 10/31/21 10/31/21 10/31/21 19:23 19:30 19:30 WBC 20.6 H RBC 3.36 L Hgb 10.5 L Hct 30.4 L MCV 90.5 MCH 31.3 H MCHC 34.5 RDW 14.4 Plt Count 391 MPV 9.9 Neut # (Auto) Not Reportable Lymph # (Auto) Not Reportable Curry # (Auto) Not Reportable Eos # (Auto) Not Reportable Baso # (Auto) Not Reportable Absolute Nucleated RBC Not Reportable Total Counted 100 Band Neuts % (Manual) 3 Abnorm Lymph % (Manual) 0 Nucleated RBC % Not Reportable Neutrophils # (Manual) 20.0 H Lymphocytes # (Manual) 0.4 L Monocytes # (Manual) 0.2 Eosinophils # (Manual) 0.0 Basophils # (Manual) 0.0 Differential Comment MANUAL DIFFERENTIAL WBC Morphology 2+ TOXIC GRANULATION Platelet Estimate NORMAL (130-450,000) Platelet Morphology NORMAL APPEARANCE RBC Morph Micro Appear NORMAL APPEARANCE Sodium 138 Potassium 3.2 L Chloride 103 Carbon Dioxide 24 Anion Gap 11.0 BUN 9 Creatinine 0.7 Estimated GFR (MDRD) 82 L Glucose 123 H Lactic Acid 1.9 Calcium 7.9 L Total Bilirubin 0.9 AST 47 H ALT 63 H Alkaline Phosphatase 193 H Total Protein 6.1 L Albumin 2.5 L Globulin 3.6 Albumin/Globulin Ratio 0.7 L Lipase 29 Urine Color Urine Clarity Urine pH Ur Specific [place] Urine Protein Urine Glucose (UA) Urine Ketones Urine Occult Blood Urine Nitrite Urine Bilirubin Urine Urobilinogen Ur Leukocyte Esterase Ur Microscopic Review Urine Culture Comments Nasal Adenovirus (PCR) Nasal B. parapertussis DNA (PCR) Nasal Coronavir 229E PCR Nasal Coronavir HKU1 PCR Nasal Coronavir NL63 PCR Nasal Coronavir OC43 PCR Nasal Enterovir/Rhinovir PCR Nasal Influenza B PCR Nasal Influenza A PCR Nasal Parainfluen 1 PCR Nasal Parainfluen 2 PCR Nasal Parainfluen 3 PCR Nasal Parainfluen 4 PCR Nasal RSV (PCR) Nasal B.pertussis DNA PCR Nasal C.pneumoniae (PCR) Win Human Metapneumo PCR Nasal M.pneumoniae (PCR) Nasal SARS-CoV-2 (PCR) 10/31/21 10/31/21 19:45 21:00 WBC RBC Hgb Hct MCV MCH MCHC RDW Plt Count MPV Neut # (Auto) Lymph # (Auto) [place] # (Auto) Eos # (Auto) Baso # (Auto) Absolute Nucleated RBC Total Counted Band Neuts % (Manual) Abnorm Lymph % (Manual) Nucleated RBC % Neutrophils # (Manual) Lymphocytes # (Manual) Monocytes # (Manual) Eosinophils # (Manual) Basophils # (Manual) Differential Comment WBC Morphology Platelet Estimate Platelet Morphology RBC Morph Micro Appear Sodium Potassium Chloride Carbon Dioxide Anion Gap BUN Creatinine Estimated GFR (MDRD) Glucose Lactic Acid Calcium Total Bilirubin AST ALT Alkaline Phosphatase Total Protein Albumin Globulin Albumin/Globulin Ratio Lipase Urine Color YELLOW Urine Clarity CLEAR Urine pH 6.0 Ur Specific [place] 1.010 Urine Protein NEGATIVE Urine Glucose (UA) NEGATIVE Urine Ketones NEGATIVE Urine Occult Blood NEGATIVE Urine Nitrite NEGATIVE Urine Bilirubin NEGATIVE Urine Urobilinogen 0.2 (NORMAL) Ur Leukocyte Esterase NEGATIVE Ur Microscopic Review NOT INDICATED Urine Culture Comments NOT INDICATED Nasal Adenovirus (PCR) NOT DETECTED Nasal B. parapertussis DNA (PCR) NOT DETECTED Nasal Coronavir 229E PCR NOT DETECTED Nasal Coronavir HKU1 PCR NOT DETECTED Nasal Coronavir NL63 PCR NOT DETECTED Nasal Coronavir OC43 PCR NOT DETECTED Nasal Enterovir/Rhinovir PCR NOT DETECTED Nasal Influenza B PCR NOT DETECTED Nasal Influenza A PCR NOT DETECTED Nasal Parainfluen 1 PCR NOT DETECTED Nasal Parainfluen 2 PCR NOT DETECTED Nasal Parainfluen 3 PCR NOT DETECTED Nasal Parainfluen 4 PCR NOT DETECTED Nasal RSV (PCR) NOT DETECTED Nasal B.pertussis DNA PCR NOT DETECTED Nasal C.pneumoniae (PCR) NOT DETECTED Win Human Metapneumo PCR NOT DETECTED Nasal M.pneumoniae (PCR) NOT DETECTED Nasal SARS-CoV-2 (PCR) NOT DETECTED - Rads (name of study) CT abd/pelvis Radiology: Final report received, EMP read contemporaneously, See rad report PD MEDICAL DECISION MAKING - ED course Complexity details: reviewed results, re-evaluated patient, considered differential, d/w patient ED course: Patient is a 71-year-old female who presents to the emergency department with right upper quadrant abdominal pain and fever today. She was recently diagnosed with a possible liver mass. Has had an increasing leukocytosis over the past 4 days. Her mass has been decreased in size from 5.5 cm to 8 cm. Consistent with abscess/infectious process. Antibiotics were held as she does not appear septic at this point and the receiving hospital may want to perform the biopsy prior to antibiotics for culture purposes. Discussed the case with Jim Chavez, He states that there are no beds at any [place] facilities. He states that she is cleared for admission to any hospital or we can find a bed. Attempted to contact [facility] in [place], [facility], [facility] and [facility] in [place]. All the hospitals are full. There are no beds available tonight. Attempted to discuss with our hospitalist here, but Dr. Boateng feels that this patient is too complicated for our facility. We do not have IR, hepatology or gastroenterology. To discuss with the transfer center at the [facility], they will call back. We may also contacted the [facility] to see if they can find any beds for this patient. Patient signed out to the [facility] emergency department physician. This document was made in part using voice recognition software. While efforts are made to proofread this document, sound alike and grammatical errors may occur. 1. 8.0 x 6.2 x 7.3 cm heterogeneously enhancing, multicystic lesion involving the right lobe of liver increased in size compared to 10/27/2021. Findings are most suspicious for abscess/infectious process, however aggressive neoplastic process is not completely excluded by the current study. Correlation with clinical and laboratory data, multiphase hepatic protocol CT or MRI of the abdomen and surgical consultation recommended. 2. No lymphadenopathy based on size criteria. 3. No free intraperitoneal fluid or air. 4. Colonic diverticulosis without evidence of diverticulitis. CXR: No acute disease Departure - Departure Disposition: 02 Transfer Acute Care Hosp Clinical Impression: Liver mass Fever Qualifiers: Fever type: unspecified Qualified Code(s): R50.9 - Fever, unspecified Abdominal pain Qualifiers: Abdominal location: right upper quadrant Qualified Code(s): R10.11 - Right upper quadrant pain Condition: Stable
--- NOTE | 2021-10-31 20:59 | XRAY Report ---
PROCEDURE: Chest 1 View X-Ray INDICATIONS: fever TECHNIQUE: One view of the chest was acquired. COMPARISON: CT chest 10/27/2021. FINDINGS: Surgical changes and devices: None. Lungs and pleura: No pleural effusions or pneumothorax. Interstitial prominence in the lungs bilater ally. Mediastinum: Mediastinal contours appear normal. Heart size is normal. Bones and chest wall: No suspicious bony lesions. Overlying soft tissues appear unremarkable. IMPRESSION: Bilateral lung interstitial prominence which could represent atypical pneumonia or pulmonary edema. Reviewed by: Vonda Ugarte MD, PhD on 10/31/2021 8:57 PM PDT Approved by: Vonda Ugarte MD, PhD on 10/31/2021 8:57 PM PDT Station ID: [id number]
--- NOTE | 2021-10-31 21:16 | CT Report ---
PROCEDURE: Abdomen/Pelvis W INDICATIONS: fever, liver mass CONTRAST: IV CONTRAST: Optiray 320 ml: 100 PO CONTRAST: *NO PO CONTRAST TECHNIQUE: After the administration of contrast, 5 mm thick sections acquired from the diaphragms to the sym physis. 5 mm thick coronal and sagittal reformats were acquired. For radiation dose reduction, the following was used: automated exposure control, adjustment of mA and/or kV according to patient size . COMPARISON: None. FINDINGS: Image quality: Excellent. ABDOMEN: Lung bases: Lung bases are clear. Heart size is normal. Solid organs: There is a 8.0 x 6.2 x 7.3 cm heterogeneously enhancing, multicystic lesion in the righ t lobe of the liver which is increased in size compared to 10/27/2021. No new hepatic lesions identifi ed. Spleen is normal in size and enhancement. Gallbladder is within normal limits Biliary system is non dilated. Pancreas enhances normally. No adrenal nodules. Kidneys demonstrate normal size and e nhancement, without hydronephrosis. Peritoneum and bowel: Bowel loops demonstrate normal wall thickness and caliber. Numerous diverticul i noted in the colon without evidence of diverticulitis. No free fluid or air. Nodes and vessels: No retroperitoneal or mesenteric adenopathy by size criteria. Aorta and inferior vena cava are normal in size. Scattered atherosclerotic calcifications are noted in the abdominal an d pelvic vasculature. Miscellaneous: No ventral hernias. PELVIS: Genitourinary: Bladder wall thickness is normal. Miscellaneous: No inguinal hernias or adenopathy. Bones: No suspicious bony lesions. No vertebral body compression fractures. IMPRESSION: 1. 8.0 x 6.2 x 7.3 cm heterogeneously enhancing, multicystic lesion involving the right lobe of liver increased in size compared to 10/27/2021. Findings are most suspicious for abscess/infectious process , however aggressive neoplastic process is not completely excluded by the current study. Correlation with clinical and laboratory data, multiphase hepatic protocol CT or MRI of the abdomen and surgical consultation recommended. 2. No lymphadenopathy based on size criteria. 3. No free intraperitoneal fluid or air. 4. Colonic diverticulosis without evidence of diverticulitis. Reviewed by: Vonda Ugarte MD, PhD on 10/31/2021 9:14 PM PDT Approved by: Vonda Ugarte MD, PhD on 10/31/2021 9:14 PM PDT Station ID: [id number]
[2021-10-31] MEDS ORDERED: SODIUM CHLORIDE 0.9% 1,000 ML IV STA ×2 (21:43)
[2021-10-31 22:25] LABS: B. PARAPERTUSSIS- RESP PCR PAN NOT DETECTED; B. PERTUSSIS- RESP PCR PANEL NOT DETECTED; C. PNEUMONIAE- RESP PCR PANEL NOT DETECTED; CORONAVIRUS 229E-RESP PCR NOT DETECTED; CORONAVIRUS HKU1-RESP PCR NOT DETECTED; CORONAVIRUS NL63-RESP PCR NOT DETECTED; CORONAVIRUS OC43-RESP PCR NOT DETECTED; HUMAN METAPNEUMOVIRUS NOT DETECTED; INFLUENZA A- RESP PCR PANEL NOT DETECTED; INFLUENZA B - RESP PCR PANEL NOT DETECTED; M. PNEUMONIAE- RESP PCR PANEL NOT DETECTED; PARAINFLUENZA VIRUS 1 NOT DETECTED; PARAINFLUENZA VIRUS 2 NOT DETECTED; PARAINFLUENZA VIRUS 3 NOT DETECTED; PARAINFLUENZA VIRUS 4 NOT DETECTED; RHINOVIRUS/ENTEROVIRUS NOT DETECTED; RSV- RESP PCR PANEL NOT DETECTED; SARS-CoV-2 -RESP PCR PANEL NOT DETECTED
[2021-11-01 00:02] VITALS: BP 109/59
[2021-11-01] MEDS ORDERED: cefTRIAXone 1 GM in SODIUM CHLORIDE 0.9% MINIBAG 100 ML IV STA (01:19)
--- NOTE | 2021-11-01 01:38 | ED Physician Documentation ---
ED Addendum - Addendum Addendum: 11/01/21 01:10 Patient signed out to me by Dr. Martel. Patient is awaiting transfer to a facility with IR Coverage for a liver mass suspicious for an abscess.So far we have received no call box regarding an available bed. As the patient was febrile and has an elevated white count, I will initiate antibiotic therapy as I am unsure of how long she may be waiting on transfer. 11/01/21 01:36 Discussed the case with Dr. Scott Rosas at [facility]. He agrees With the antibiotics that have been given. HeAccepts the patient for transfer for a [facility] bed. Requested a repeat set of vitals prior to transfer and per COREY Toth, patient's blood pressure had improved prior to transport. Requested a dose of pain medication given long transport time. As her blood pressure has improved I feel this is appropriate and have ordered for 0.5 mg of IV Dilaudid.
[2021-11-01] MEDS ORDERED: cefTRIAXone 1 GM VIAL ONE (01:43)
[2021-11-01] MEDS ORDERED: metroNIDAZOLE 500 MG/100 ML 500 MG/100 ML BAG IV ONE (02:00)
[2021-11-01] MEDS ORDERED: HYDROmorphone 1 MG/ML CARPUJECT IVP STA (02:18)
== END 2021-11-01 02:42 | disposition short-term general hospital (02) ==
LOC: EDUNIT# → ED 18:35
DX: K75.0 Abscess of liver (principal); R50.9 Fever, unspecified; R10.11 Right upper quadrant pain; Z20.822 Contact with and (suspected) exposure to COVID-19
CPT/HCPCS: 36415; 71045; 74177; 80053; 81003; 83605; 83690; 85025; 87040; 87077; 87150; 87181; 87631; 96361; 96365; 96375; 96376; 99284; 99285; J1170; Q9967; 0202U; 81001; 87086

== ENCOUNTER 2021-11-01 02:36 | Outpatient (CLI) | payer MEDICARE | END 2021-11-01 02:37 | disposition short-term general hospital (02) | LOC: EMS 02:36 | PROVIDERS: ATTEND Emergency Medicine | DX: K75.0 Abscess of liver (principal) | CPT/HCPCS: A0425; A0426 ==

== ENCOUNTER 2021-12-17 12:16 | Outpatient (CLI) | payer MEDICARE ==
[2021-12-17 15:29] LABS: BASOPHILS % (AUTO) 0.8 %; EOSINOPHILS # (AUTO) 0.1 10^3/uL (0.0-0.7); EOSINOPHILS % (AUTO) 1.7 %; HCT - HEMATOCRIT 40.6 % (37.0-47.0); HGB - HEMOGLOBIN 13.3 g/dL (12.0-16.0); LYMPHOCYTES # (AUTO) 1.6 10^3/uL (1.5-3.5); LYMPHOCYTES % (AUTO) 33.4 %; MEAN CORPUSCULAR HGB CONC 32.8 g/dL (32.0-36.0); MEAN CORPUSCULAR VOLUME 94.6 fL (81.0-99.0); MEAN PLATELET VOLUME 10.6 fL (7.9-10.8); MONOCYTES # (AUTO) 0.5 10^3/uL (0.0-1.0); MONOCYTES % (AUTO) 10.6 %; NEUTROPHILS # (AUTO) 2.6 10^3/uL (1.5-6.6); NEUTROPHILS % (AUTO) 53.3 %; PLT - PLATELET COUNT 295 10^3/uL (130-450); RED BLOOD COUNT 4.29 10^6/uL (4.20-5.40); RED CELL DISTRIBUTION WIDTH 13.8 % (12.0-15.0); WHITE BLOOD COUNT 4.8 x10^3/uL (4.8-10.8)
[2021-12-17 15:45] LABS: ALBUMIN 3.7 g/dL (3.2-5.5); ALBUMIN/GLOBULIN RATIO 1.2 (1.0-2.2); ALKALINE PHOSPHATASE 51 IU/L (42-121); ALT ALANINE AMINOTRANSFERASE 18 IU/L (10-60); AST ASPARTATE AMINOTRANSFERASE 28 IU/L (10-42); BILIRUBIN,TOTAL 0.5 mg/dL (0.2-1.0); BUN - BLOOD UREA NITROGEN 10 mg/dL (6-20); CALCIUM 8.8 mg/dL (8.5-10.3); CARBON DIOXIDE - CO2 29 mmol/L (21-32); CHLORIDE 102 mmol/L (101-111); CREATININE 0.6 mg/dL (0.4-1.0); GFR - MDRD 98 (>89); GLUCOSE 141 mg/dL (70-100); POTASSIUM 4.3 mmol/L (3.5-5.0); SODIUM 137 mmol/L (135-145); TOTAL PROTEIN 6.8 g/dL (6.7-8.2)
[2021-12-17 16:54] LABS: CRP - C-REACTIVE PROTEIN < 1.0 mg/dL (0-1.0)
== END 2021-12-17 12:17 | disposition home or self-care (01) ==
LOC: LAB.S 12:16
PROVIDERS: ATTEND Internal Medicine
DX: K75.0 Abscess of liver (principal)
CPT/HCPCS: 36415; 80053; 85025; 86140

== ENCOUNTER 2022-01-03 09:57 | Outpatient (CLI) | payer MEDICARE ==
--- NOTE | 2022-01-04 13:40 | Mammography Report ---
BILATERAL DIGITAL SCREENING MAMMOGRAM 3D/2D: 01/03/2022 CLINICAL: Routine screening. Comparison is made to exams dated: 05/30/2019 mammogram and 01/21/2018 mammogram - [facility]. There are scattered fibroglandular elements in both breasts. There is a focal asymmetry in the right breast central to the nipple middle depth. No other significant masses, calcifications, or other findings are seen in either breast. IMPRESSION: INCOMPLETE: NEEDS ADDITIONAL IMAGING EVALUATION The focal asymmetry in the right breast is indeterminate. Additional views with possible ultrasound are recommended. This exam was interpreted at Station ID: [id number]. NOTE: For mammograms, a report in lay terms will be sent to the patient. Approximately 15% of breast malignancies will not be visualized mammographically. In the management of a palpable breast mass, a negative mammogram must not discourage biopsy of a clinically suspicious lesion. Electronically Signed By: Beryl dai/[email or web address]:01/03/2022 17:02:17 ACR BI-RADS Category 0: Incomplete 3340F PARENCHYMAL PATTERN: (A) - The breast(s) demonstrate(s) scattered fibroglandular densities. BI-RADS CATEGORY: (0) - 0 Mammo and [place] [id number] Immediate follow-up LATERALITY: (B)
== END 2022-01-03 09:58 | disposition home or self-care (01) ==
LOC: DI.S 09:57
PROVIDERS: ATTEND Internal Medicine
DX: Z12.31 Encounter for screening mammogram for malignant neoplasm of breast (principal); R92.8 Other abnormal and inconclusive findings on diagnostic imaging of breast

== ENCOUNTER 2022-02-01 10:21 | Outpatient (CLI) | payer MEDICARE ==
--- NOTE | 2022-02-02 07:56 | Ultrasound Report ---
LIMITED ULTRASOUND OF RIGHT BREAST: 02/01/2022 Comparison is made to exams dated: 02/01/2022 mammogram, 01/03/2022 mammogram, 05/30/2019 mammogram, a nd 01/21/2018 mammogram - [facility]. Ultrasound of the right breast 4-7 o'clock region was performed. Rodriguez scale images of the real-time examination were reviewed. There is no sonographic abnormality to correspond to the mammographically identified asymmetry. IMPRESSION: PROBABLY BENIGN The asymmetry in the right breast is less prominent with spot compression and has no sonographic thor elate. This is probably fibroglandular tissue and is probably benign. A follow-up mammogram in [place] is recommended to demonstrate stability. This exam was interpreted at Station ID: [id number]. Electronically Signed By: Zack Cassidy M.D. jr/:02/01/2022 11:52:46 Ultrasound BI-RADS: 3 Probably benign BI-RADS CATEGORY: (3) - 3 Mammogram [id number] 6 month follow-up LATERALITY: (B)
--- NOTE | 2022-02-02 07:56 | Mammography Report ---
UNILATERAL RIGHT DIGITAL DIAGNOSTIC MAMMOGRAM 3D/2D: 02/01/2022 CLINICAL: Patient returns today to evaluate a focal asymmetry in the right breast. Comparison is made to exams dated: 01/03/2022 mammogram, 05/30/2019 mammogram, and 01/21/2018 mammogram - [facility]. There are scattered fibroglandular elements in right breast. There is a focal asymmetry in the right breast central to the nipple middle depth. This is seen in a dditional views. This is less prominent. No other significant masses or calcifications are seen in the breast. IMPRESSION: INCOMPLETE: NEEDS ADDITIONAL IMAGING EVALUATION The focal asymmetry in the right breast is less prominent but not fully dissipated. An ultrasound is being performed for further evaluation. This exam was interpreted at Station ID: [id number]. NOTE: For mammograms, a report in lay terms will be sent to the patient. Approximately 15% of breast malignancies will not be visualized mammographically. In the management of a palpable breast mass, a negative mammogram must not discourage biopsy of a clinically suspicious lesion. Electronically Signed By: Zack Cassidy M.D. jr/:02/01/2022 11:51:19 ACR BI-RADS Category 0: Incomplete 3340F PARENCHYMAL PATTERN: (A) - The breast(s) demonstrate(s) scattered fibroglandular densities. BI-RADS CATEGORY: (0) - 0 Unspecified - other recall n/a LATERALITY: (B)
== END 2022-02-01 10:22 | disposition home or self-care (01) ==
LOC: DI 10:21
PROVIDERS: ATTEND Internal Medicine
DX: R92.8 Other abnormal and inconclusive findings on diagnostic imaging of breast (principal)

== ENCOUNTER 2022-02-24 10:41 | Outpatient (CLI) | payer MEDICARE ==
--- NOTE | 2022-02-24 14:47 | DEXA Report ---
PROCEDURE: Dexa Spine and/or Hip INDICATIONS: POST MENOPAUSAL TECHNIQUE: Dual energy x-ray absorptiometry (DXA) was performed on a [employer]. Regions measur ed are the AP Spine, femoral neck, and if needed forearm. COMPARISON: DEXA, 05/30/2019.. FINDINGS: Lumbar Spine: Bone Mineral Density 1.019 g/cm/cm,T score -1.3, osteopenia. Left Hip: Bone Mineral Density 0.765 g/cm/cm,T score -1.9, osteopenia. Left Femoral Neck: Bone Mineral Density 0.758 g/cm/cm, T score -2.0, osteopenia. (T score greater or equal to -1.0: NORMAL) (T score from -1.1 to -2.4: OSTEOPENIA) (T score less than or equal to -2.5 to: OSTEOPOROSIS) Impression: 1. Based on WHO criteria, the patient is osteopenic. Compared to last exam on 05/30/2019, there is no statistically significant change. Patients with diagnosis of osteoporosis or osteopenia should have regular bone mineral density assess ment. For those eligible for Medicare, routine testing is allowed once every 2 years. Testing frequ ency can be increased for patients who have rapidly progressing disease or for those who are receivin g medical therapy to restore bone mass. Reviewed by: Sravanthi Perez MD on 02/24/2022 2:46 PM PDT Approved by: Sravanthi Perez MD on 02/24/2022 2:46 PM PDT Station ID: [id number]
== END 2022-02-24 10:42 | disposition home or self-care (01) ==
LOC: DI 10:41
PROVIDERS: ATTEND Student in an Organized Health Care Education/Training Program
DX: Z13.820 Encounter for screening for osteoporosis (principal); M85.89 Other specified disorders of bone density and structure, multiple sites; Z78.0 Asymptomatic menopausal state

== ENCOUNTER 2022-07-31 08:00 | Outpatient (CLI) | payer MEDICARE | END 2022-07-31 23:59 | disposition home or self-care (01) | LOC: LAB.S 08:00 | PROVIDERS: ATTEND Registered Nurse | DX: R30.0 Dysuria (principal) | CPT/HCPCS: 87077; 87086; 87181 ==

== ENCOUNTER 2022-08-01 10:45 | Outpatient (CLI) | payer MEDICARE ==
[2022-08-01 15:10] LABS: BASOPHILS # (AUTO) 0.1 10^3/uL (0.0-0.1); BASOPHILS % (AUTO) 0.9 %; EOSINOPHILS # (AUTO) 0.8 10^3/uL (0.0-0.7); EOSINOPHILS % (AUTO) 13.2 %; HCT - HEMATOCRIT 42.1 % (37.0-47.0); HGB - HEMOGLOBIN 13.6 g/dL (12.0-16.0); LYMPHOCYTES # (AUTO) 2.2 10^3/uL (1.5-3.5); LYMPHOCYTES % (AUTO) 33.9 %; MEAN CORPUSCULAR HEMOGLOBIN 30.5 pg (27.0-31.0); MEAN CORPUSCULAR HGB CONC 32.3 g/dL (32.0-36.0); MEAN CORPUSCULAR VOLUME 94.4 fL (81.0-99.0); MEAN PLATELET VOLUME 11.3 fL (7.9-10.8); MONOCYTES # (AUTO) 0.7 10^3/uL (0.0-1.0); MONOCYTES % (AUTO) 10.6 %; NEUTROPHILS # (AUTO) 2.6 10^3/uL (1.5-6.6); NEUTROPHILS % (AUTO) 41.2 %; PLT - PLATELET COUNT 227 10^3/uL (130-450); RED BLOOD COUNT 4.46 10^6/uL (4.20-5.40); RED CELL DISTRIBUTION WIDTH 12.8 % (12.0-15.0); WHITE BLOOD COUNT 6.4 x10^3/uL (4.8-10.8)
[2022-08-01 15:17] LABS: ALBUMIN 4.2 g/dL (3.2-5.5); ALBUMIN/GLOBULIN RATIO 1.2 (1.0-2.2); BILIRUBIN,TOTAL 0.5 mg/dL (0.2-1.0); CALCIUM 9.3 mg/dL (8.5-10.3); CREATININE 0.7 mg/dL (0.4-1.0); POTASSIUM 4.2 mmol/L (3.5-5.0); TOTAL PROTEIN 7.6 g/dL (6.7-8.2)
== END 2022-08-01 10:46 | disposition home or self-care (01) ==
LOC: LAB.S 10:45
PROVIDERS: ATTEND Registered Nurse
DX: R30.0 Dysuria (principal); R10.11 Right upper quadrant pain
CPT/HCPCS: 36415; 80053; 83690; 85025

== ENCOUNTER 2022-12-07 10:43 | Outpatient (CLI) | payer MEDICARE ==
--- NOTE | 2022-12-08 10:55 | Mammography Report ---
BILATERAL DIGITAL DIAGNOSTIC MAMMOGRAM 3D/2D: 12/07/2022 CLINICAL: Patient returns for a 6 month follow up of the right breast, due for bilateral exam. Comparison is made to exams dated: 02/01/2022 mammogram, 01/03/2022 mammogram, 05/30/2019 mammogram, a nd 02/01/2022 ultrasound - [facility]. There are scattered areas of fibroglandular density in both breasts (category b / 25%-50% glandular t issue). The benign focal asymmetry in the right breast central to the nipple middle depth is no longer seen. Stable benign mass in the right breast. No other significant masses, calcifications, or other finding s are seen in either breast. IMPRESSION: BENIGN There is no mammographic evidence of malignancy. Right breast focal asymmetry is no longer seen and is benign. A 1 year screening mammogram is recommended. Exam findings were conveyed to the patient. Based on the Tyrer Cuzick model (a risk assessment model) the patients lifetime risk is 3.9% and her 10 year risk is 3.5%. According to the ACR, ACS, and NCCN guidelines, an annual breast MRI exam zohra g with mammogram is recommended if the patients lifetime risk is 20% or greater. This exam was interpreted at Station ID: [id number]. NOTE: For mammograms, a report in lay terms will be sent to the patient. Approximately 15% of breast malignancies will not be visualized mammographically. In the management of a palpable breast mass, a negative mammogram must not discourage biopsy of a clinically suspicious lesion. Electronically Signed By: Tu Almaraz M.D. slc/:12/07/2022 11:32:36 ACR BI-RADS Category 2: Benign Finding(s) 3342F PARENCHYMAL PATTERN: (A) - The breast(s) demonstrate(s) scattered fibroglandular densities. BI-RADS CATEGORY: (2) - 2 Mammogram [id number] 1 year screening LATERALITY: (B)
== END 2022-12-07 10:44 | disposition home or self-care (01) ==
LOC: DI 10:43
PROVIDERS: ATTEND Student in an Organized Health Care Education/Training Program
DX: R92.8 Other abnormal and inconclusive findings on diagnostic imaging of breast (principal)

== ENCOUNTER 2024-03-11 09:09 | Outpatient (CLI) | payer MEDICARE ==
--- NOTE | 2024-03-11 09:31 | CARDIAC PROCEDURE NOTE ---
Stress Test Report Service Date: 03/11/24 Service Time: 09:30 Ordering Provider: Loki Kulkarni PA-C Indication for Test: Assess primarily exertional chest discomfort. Significant Medical History: James is referred for a treadmill stress echocardiogram today, to assess her concerns for exertional upper central chest tightness, associated variably with nausea, shortness of breath, diaphoresis and lightheadedness; the symptoms have occurred intermittently over the past 3-4 months. She first noticed the symptoms while doing treadmill walking at home but also has experienced them while hiking on routes that include hills, and at times while leaning over doing gardening. She says that the discomfort on some occasions has lasted for as long as 15-20 minutes and ultimately subsides with continuing rest. She has been advised to decrease the intensity of her physical activity while awaiting today's test, but feels that her stamina remains intact and that she could do more physically, if given clearance to do so. She has a history of hyperlipidemia, believes her total cholesterol was as high as 280, and she was treated initially with simvastatin (to which she reacted poorly) then rosuvastatin, which has been well tolerated over the past year. She recalls a follow-up total cholesterol value of 240, but this was at a time when her adherence to this therapy was less than complete though over the last few months she has been carefully taking it daily. Cardiac Risk Factors: Positive for hyperlipidemia (statin treated for 1-2 years) and modest family history of ASCVD (father with "circulation issues", maternal grandmother with NC at age 83); negative for history of hypertension, diabetes or tobacco smoking ever. Type of Stress Test: ETT with Echocardiography Procedure: -Exercise Treadmill Test- After signing informed consent, the patient underwent echo imaging at rest and then performed treadmill exercise using a Bhupendra protocol. The patient exercised for 5 minutes 49 seconds and achieved a peak heart rate of 150 (103 percent predicted maximum heart rate for age), and an estimated workload of 7.1 METS. The test was terminated due to fatigue/shortness of breath. Resting heart rate: 72 Peak heart rate: 150 Normal response to exercise. Resting BP: 164/85 Peak BP: 210/74 Elevated resting systolic BP with hypertensive response of systolic BP and normal response of diastolic BP to exercise. Room air oxygen saturation during exercise ranged between 93-98%. Rhythm during exercise: Sinus rhythm throughout, with rare isolated PVCs (total of two recorded over 46 minutes of total monitoring). Symptoms: She reported leg heaviness in early stage 2 but did NOT perceive any chest pressure/discomfort at all. EKG at rest showed normal sinus rhythm, fully normal in all aspects. EKG at peak stress showed no ischemia by EKG criteria, though there appeared to be transient ST depression at the end of stage I that subsequently normalized. In Recovery HR and BP decreased uneventfully, remaining modestly elevated above baseline at 5:00 (HR 88, BP 150/68). Echo imaging, performed at rest and with stress, will be reported separately. I, Ulysses Borja MD, was present throughout this treadmill stress study and supervised it in its entirety. Summary: 1) Exercise tolerance was modestly above average for age and sex as evidenced by HANANE of -10%. 2) Normal resting EKG. 3) Adequate level of exercise was achieved on this treadmill stress test. 4) Elevated resting systolic BP with hypertensive systolic BP response to exercise. 5) No ischemic changes by EKG criteria were seen at peak stress. 6) Echo image interpretation reveals normal left ventricular size, wall thickn ess and systolic function, with appropriate hyperdynamic augmentation of all segments with exercise, indicating no evidence of prior infarct or inducible ischemia. On screening study there was evidence of mild mitral valve prolapse with mild to moderate mitral regurgitation, without elevation of estimated pulmonary artery systolic pressure or other structural valve abnormality seen. See separate report for more details. Conclusions and Recommendations: 1) Overall this study was reassuring with no symptom, EKG or echo evidence of inducible ischemia. James was encouraged to continue taking rosuvastatin daily, as the primary preventive strategy to reduce her risk for subsequent atherosclerotic events. 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 While these findings do not seem relevant to her concern for chest discomfort, we did discuss their implication and I would recommend that she undergo a dedicated formal echocardiogram in about a year to assess for potential progression, or sooner if breathlessness increases. If the findings are stable at 1 year then Guideline-recommended timing of repeat study would be 3 years. 3) James's resting blood pressure was elevated, with a hypertensive response of systolic blood pressure to exercise. These findings do not by themselves constitute an indication for antihypertensive therapy, but should prompt a closer review of her blood pressures over several resting morning and afternoon readings (after she returns from her imminent 3-week trip to [facility]). If the values are more than rarely systolic BP greater than 375577 or diastolic BP greater than 8085 then antihypertensive therapy should be initiated. It would also be reasonable for her to bring her cuff into the clinic to make sure that it is reading accurately.
== END 2024-03-11 09:10 | disposition home or self-care (01) ==
LOC: DI 09:09
PROVIDERS: ATTEND Student in an Organized Health Care Education/Training Program
DX: R07.9 Chest pain, unspecified (principal); E78.5 Hyperlipidemia, unspecified; Z82.49 Family history of ischemic heart disease and other diseases of the circulatory system; I34.0 Nonrheumatic mitral (valve) insufficiency
CPT/HCPCS: 93350

== ENCOUNTER 2024-05-13 08:00 | Outpatient (CLI) | payer MEDICARE ==
--- NOTE | 2024-05-13 15:58 | XRAY Report ---
Shoulder 2+V LT HISTORY: 73 years of age, LEFT SHOULDER PAIN TECHNIQUE: Shoulder 2+V LT COMPARISON: None. FINDINGS/IMPRESSION: No acute fracture or dislocation. Joint spaces are well maintained. Reviewed by: Caroline Caldwell MD on 05/13/2024 3:56 PM PDT Approved by: Caroline Caldwell MD on 05/13/2024 3:56 PM PDT Station ID: [id number]
== END 2024-05-13 23:59 | disposition home or self-care (01) ==
LOC: DI.S 08:00
PROVIDERS: ATTEND Physician Assistant
DX: M25.512 Pain in left shoulder (principal)